=== PATIENT | male | born 1975 ===

== ENCOUNTER 2024-10-03 07:13 | Day surgery (SDC) | payer OTHER ==
[2024-09-26 11:30] VITALS: BP 145/90
[2024-09-26 11:48] LABS: HEMATOCRIT 46.8 % (39.0-48.0); MEAN CORPUSCULAR HEMOGLOBIN 33.1 pg (27.00-32.0); MEAN CORPUSCULAR HGB CONC 34.1 g/dl (32.0-36.0); PLATELET COUNT 180 K/uL (150-450); RED BLOOD COUNT 4.83 M/uL (4.00-6.00)
[2024-09-26 11:55] LABS: URINE APPEARANCE Turbid; URINE BILIRRUBIN Negative (NEGATIVE); URINE BLOOD Negative; URINE COLOR Yellow; URINE GLUCOSE Negative (NEGATIVE); URINE KETONE Negative (NEGATIVE); URINE LEUKOCYTE Negative; URINE NITRATE Negative; URINE PROTEIN Negative (NEGATIVE); URINE UROBILINOGEN 0.2 E.U./dl
[2024-09-26 11:59] LABS: URINE BACTERIA 7.3 uL (0.0-1933); URINE RBC 13.5 uL (0.0-20.8)
[2024-09-26 12:12] LABS: URINE CAST 0.29 uL (0.0-1.40); URINE EPITHELIAL CELLS 0.9 uL (0.0-38.8); URINE WBC 1.2 uL (0.0-23.2)
[2024-09-26 12:13] LABS: INR 1.03; PARTIAL THROMBOPLASTIN TIME 28.2 SECONDS (22.0-34.0); PROTHROMBIN TIME 11.2 SECONDS (9.0-11.5)
[2024-09-26 12:32] LABS: BILIRUBIN TOTAL 0.39 mg/dL (0.3-1.2); CREATININE SERUM 1.03 mg/dL (0.70-1.30); GFR 76.44; POTASSIUM 4.87 mEq/L (3.5-5.1)
[~2024-10-03] VITALS: Ht 175.3 cm; Wt 104.3 kg
[~2024-10-03 07:13] MED LIST: CLONAZEPAM0.5 MG PO; CYMBALTA30 MG PO; SYNTHROID75 MCG PO; TRAZODONE HCL5 GM
[2024-10-03] MEDS ORDERED: CEFAZOLIN SODIUM 1,000 MG VIAL ONE ×3 (10:28→13:13)
[2024-10-03] MEDS ORDERED: EPINEPHRINE HCL/PF 1 MG/ML AMPUL ONE (11:12)
[2024-10-03] MEDS ORDERED: PROMETHAZINE HCL 25 MG/ML AMPUL IM PRN (12:45)
[2024-10-03] MEDS ORDERED: MEPERIDINE HCL/PF 25 MG/ML VIAL IM PRN (12:45)
[2024-10-03] MEDS ORDERED: CEFAZOLIN SODIUM 1,000 MG VIAL IV ONE (12:45)
[2024-10-03] MEDS ORDERED: TRAM1TAB98 PO (12:50)
[2024-10-03] MEDS ORDERED: DUI500 PO (12:50)
[2024-10-03] MEDS ORDERED: MORPHINE SULFATE 4 MG/ML VIAL IV ONE (13:10)
== END 2024-10-03 14:35 | disposition home or self-care (01) ==
LOC: CIR.AMB 07:13
PROVIDERS: ATTEND Orthopaedic Surgery Sports Medicine
DX: M70.21 Olecranon bursitis, right elbow (principal); E03.8 Other specified hypothyroidism; F41.9 Anxiety disorder, unspecified